=== PATIENT | female | born 1955 ===

== ENCOUNTER 2017-10-23 06:22 | Inpatient (IN) | payer MEDICAID ==
[2017-10-20 13:15] VITALS: BMI 24.0
[2017-10-23] MEDS ORDERED: Bupivacaine-Epi 0.5%-1:200,000 PF Inj IJ ONE (07:18)
[2017-10-23] MEDS ORDERED: Sodium Chloride 0.9% 20 ML IV ONE (07:28)
[2017-10-23] MEDS ORDERED: ceFAZolin 1 gm in NS 2 GM/200 ML BAG IVPB ONE (07:28)
[2017-10-23] MEDS ORDERED: Bacitracin 50,000 UNIT in Sodium Chloride 0.9% Irrig 1,000 ML IR SCH (08:00)
[2017-10-23] MEDS ORDERED: Propofol 10 mg/ml Inj (20 ML) ONE (08:16)
[2017-10-23] MEDS ORDERED: Midazolam 2 MG/2 ML VIAL ONE (08:16)
[2017-10-23] MEDS ORDERED: Lidocaine Hydrochloride 5 ML INJ ONE (08:19)
[2017-10-23] MEDS ORDERED: Rocuronium 10 mg/ml (5 ml) ONE (08:20)
[2017-10-23] MEDS ORDERED: Morphine 4 MG/ML VIAL IVP PRN (11:30)
[2017-10-23] MEDS ORDERED: Sodium Chloride 0.9% 1,000 ML IV SCH (11:30)
[2017-10-23] MEDS ORDERED: Oxycodone/Acetaminophen 5/325 mg Tab PO PRN (11:30)
--- NOTE | 2017-10-23 11:30 | PCM.OP ---
Operative Report - Operative Report Date of Surgery/Procedure: 10/23/17 Time of Surgery/Procedure: 11:27 Surgeon: Tan Saeed MD Air Compressor Engineer: Binta NUNEZ Anesthesia/Sedation: Gen with Et Tube Pre-Operative Diagnosis: Vaginal vault prolpase Stage 4. Urinary incontinence. Chronic pelvic pain. Cystocele Stage 4. Rectocele stage 4 Post-Operative Diagnosis: Vaginal vault prolpase Stage 4. Urinary incontinence. Chronic pelvic pain. Cystocele Stage 4. Rectocele stage 4. severe adhesive disease Indication for Surgery: worsening prolpase symptoms, debilitating pressure and pain in pelvis. Operative Findings: advanced vaginal vault prolapse, includilng stage 4 cystocele and rectocele. Procedure/Operation Description: Robotic Sacrocolpopexy. insertion of mesh. Robotic BSO. Enterolysis IBIS. Diagnostic cystosocpy. DESCRIPTION OF OPERATION. This is a 62 years old female with long-standing and worsening symptoms of bladder and vaginal vault prolapse, severe chronic pelvic pain and mixed urinary incontinence for several years. The patient is reporting vaginal bulge, her bladder protrudes out the vagina, urinary urgency and frequency daily, leakage of urine upon any exertion, coughing sneezing. For the past several years, these symptoms of involuntary leakage of urine and vaginal pressure have been worsening; she describes these symptoms as debilitating and adversely affecting her quality of life. The patient completed a hysterectomy in the past which resulted in vaginal fold prolapse years later. At this time, the patient presents with severe vaginal vault prolapse stage IV cystocele, vaginal vault apical prolapse extending all the way past the introitus. A comprehensive urinary incontinence work up was completed which included a TVUS , multichannel complex urodynamic study , urinalysis and cultures. The preoperative workup supports a diagnosis of mixed urinary incontinence and symptomatic large cystocele stage 4 and severe apical vaginal vault prolapse. The patient failed conservative management which included Kegels exercises as well as lifestyle changes and other pelvic floor rehabilitation exercises. A prolong and detailed discussion about conservative versus surgical management of urinary incontinence and bladder prolapse was completed. The patient elected to proceed with surgical management of bladder prolapse and urinary incontinence. A decision was made to proceed with robotic assisted sacrocolpopexy using polypropylene mesh material as well as bilateral salpingo- oophorectomy and lysis of adhesions if necessary.. After a detailed discussion regarding the pros and cons of sling procedure and the utilization of polypropylene mesh material, all risks were reviewed including but not limited to, risk of infection, mesh erosion, postoperative pain and dyspareunia. In addition, the FDA warning about mesh utilization for prolapse and incontinence surgery was reviewed in details, and a detailed and specific written informed consent was obtained. The patient elected to proceed with a Midurethral sling and prolapse repair today fully understanding and accepting the risks associated with utilizing polypropylene mesh material. Other alternatives were also offered to the patient, including a biological graft such as porcine graft as well as the patient owns fascia for sling material and prolapse repair, she elected to proceed with a polypropylene mesh sling and elevate despite all the associated risks. After proper consent was obtained from the patient, all risks , benefits, indications and alternatives of the procedure were once again reviewed with the patient. Patient was taken to the operating room, placed in the dorsolithotomy position; general anesthesia was obtained without difficulty. She was placed in the dorsal lithotomy position, her legs were placed in adjustable Ben stirrups, and careful attention was placed not to over flex or over rotates the lower extremities and the hip or knee joints. A 20 [place] three-way Grossman catheter was inserted at the outset of the procedure under sterile conditions. She was prepped and draped appropriately for robotic assisted sacrocolpopexy. The sponge stick was placed in the vagina to aid in manipulation. While tenting the abdominal wall, A Veress needle was inserted through the umbilicus at a 45 degree angle. With CO2 insufflation, there was a drop in intraperitoneal pressure confirming correct placement. Insufflation was carried out to approximately 3 liters an approximate pressure of 15mm. Then, utilizing the FirstRainep trocar system, the Veress was removed and reinserted with a Veress sheath, following which the Veress needle was removed again and a 10 mm trocar was inserted through the sheath. A robotic camera was inserted through this trocar and an initial survey of the patients abdomen revealed the following; extensive intra-abdominal and intrapelvic adhesions noted throughout the pelvic cavity, possibly from prior surgeries. Multiple loops of bowel were adherent to the pelvic sidewall as well as to the posterior cul-de-sac. The patient had her uterus surgically removed. Under direct visualization, a meticulous placement of robotic trochars was accomplished. All robotic trochars were inserted through an 8 mm incision in the following locations. The first robotic port was placed approximately 5 cm superior to the right superior iliac crest, the first robotic port was placed approximately 5 cm superior to the left superior iliac crest, the third robotic port was placed in the right upper quadrant, approximately 7 cm right lateral of the camera port in the midline, and an chemistry research assistant port was placed approximately 7 cm left lateral of the camera port approximately in the left upper quadrant. The chemistry research assistant port was approximately 1 cm in diameter, and we once again used to VersaStep trocar system in a similar fashion to the camera trocar. The patient was placed in moderate Trendelenburg position. Lateral side parallel da Telly robotic docking was accomplished without difficulty. The following instruments were utilized for this procedure: Monopolar david, PK, Prograsp. Prior to the start of the procedure, meticulous and careful lysis of adhesions as well as lysis of bowel adhesions was accomplished utilizing sharp and blunt dissections. Multiple loops of bowels were lysed off the pelvic sidewall in close proximity to the ureters on both right and left side. As well as extensive lysis of bowel adhesions from the posterior cul-de-sac to enable the completion of the sacrocolpopexy. Due to the close proximity of these tight adhesions to both ureters, exploration of ureters was necessary to ascertain safety of both ureters along the course from the pelvic brim to the bladder. The pelvic sidewall was entered in close proximity to do so psoas muscles, and the ureters were identified and traced all the way down to the bladder. Following the exploration of both ureters, the sacrocolpopexy procedure was to begin. Next was D bilateral salpingo-oophorectomy, following the extensive lysis of adhesions both ovaries and tubes were isolated vascular pedicles were cauterized and sealed and both ovaries and tubes were excised and transected labeled and sent to pathology. Attention was then turned to the presacral space. The peritoneum overlying it was tented upward and incised sagittally all the way down to the posterior vaginal wall along the pericolic gutter keeping the right ureter in view at all times. The posterior vaginal wall was dissected free from the peritoneum using monopolar Endoshears. Two obturators had been placed, one in the vagina, one in the rectum, to assist with this dissection. The dissection was carried out to 5 cm from the vaginal apex/vaginal cuff. A similar dissection was carried out anteriorly with the same technique. Excellent hemostasis was noted. A small incision was made over the longitudinal ligament on the sacrum, blunt and sharp dissection was utilized to isolate the longitudinal ligament and achieve hemostasis. This incision was continuous with the longitudinal incision along the pericolic gutter extending all the way to the posterior aspect of the vaginal cuff. There Y polypropylene mesh specifically designed for sacrocolpopexy was placed in the peritoneal cavity. The short end of the Y mash flap was anchored with 6 interrupted CV-2 [place]-Go sutures to the posterior vaginal wall. The anterior short end of the Y mesh was anchored with 6 interrupted CV 2 [place]-Go sutures to the anterior vaginal wall. Tension was performed to lift the vagina into the pelvic cavity to approximate the full length of the vagina in a tension-free fashion, while applying gentle upward tension the length of the long arm of the Y mesh was determined, trimmed off, and sutured anchored to the longitudinal ligament on the sacrum. Excellent hemostasis was noted throughout the procedure. The peritoneum over the Y mesh was closed entirely utilizing a 2-0 Monocryl suture in continuous fashion. The peritoneum was then closed with running 2-0 Vicryl with Lapra-Tys. The pelvis was irrigated copiously and freed of all clots and debris. Excellent hemostasis was noted. While removing under direct visualization, the fascia, the 12 mm trocar, was closed with a 0 Vicryl suture and then all ports were removed with excellent hemostasis. The umbilical fascia was closed with a [id number] 0 Vicryl suture. The skin was closed with 4-0 subcuticular Vicryl. At this time, the Grossman catheter was removed and a diagnostic cystoscopy was performed. The bladder was distended with about 300 cc of fluid. Both ureteral orifices were noted to be fluxing urine normally. The trigone was normal. There were no noted abnormalities with any evidence of any compromise of the lower urinary tract with mesh material, sutures or instruments. The patient emerged from general anesthesia without any difficulty. The patient was taken to the recovery room in stable condition. Prior to incision patient received prophylactic antibiotics, prior to closure sponge lap and needle counts are correct x2. The 2-inch iodoform gauze vaginal packing was then placed to prevent hematoma formation underneath the vaginal mucosa. Needle, sponge, and instrument counts were correct. Estimated Blood Loss: 10 Blood Replaced: none Sponge/Instrument Count: count corrent times 2 Drains: none Complications: none Specimen: bilateral tubes and ovaries Discharge & Condition: discharge home as per criteria
[2017-10-23] MEDS: HYDROmorphone 0.5 mg/0.5 ml ISec IVP PRN ×2 (11:55→12:27)
[2017-10-23] MEDS ORDERED: ceFAZolin 2 GM in Sodium Chloride 0.9% 100 ML IVPB SCH (13:00)
[2017-10-23] MEDS ORDERED: Sodium Chloride 0.9% 1,000 ML IV ONE (13:35)
[2017-10-23] MEDS: ceFAZolin 2 GM in Sodium Chloride 0.9% 100 ML IVPB SCH (17:28)
[2017-10-24] MEDS: ceFAZolin 2 GM in Sodium Chloride 0.9% 100 ML IVPB SCH ×2 (07:45)
[2017-10-24 07:57] LABS: HEMOGLOBIN 10.9 g/dL (11.0-16.0); MEAN CORPUSCULAR HEMOGLOBIN 30.8 pg (27.0-31.0); MEAN CORPUSCULAR HGB CONC 33.9 g/dL (33.0-37.0); MEAN PLATELET VOLUME 9.5 fL (7.2-11.7); RBC 3.54 Mil/uL (3.80-5.20)
[2017-10-24 08:05] LABS: WHITE BLOOD COUNT 10.8 K/uL (4.8-10.8)
[2017-10-24 08:13] VITALS: BP 106/65; PULSE 89; RESP 18; TEMP 98.8; O2SAT 98
[2017-10-24 08:13] LABS: BLOOD UREA NITROGEN 11 mg/dL (7-17); CALCIUM 8.7 mg/dl (8.6-10.4); GFR AFRICAN-AMERICAN > 60; GFR NON-AFRICAN AMERICAN > 60
--- NOTE | 2017-10-24 10:17 | CP.PCM.PN ---
Subjective - Date & Time of Evaluation Date of Evaluation: 10/24/17 Time of Evaluation: 10:14 - Subjective Subjective: Patient states she feels bloated, passing gas. TOlerating food. Yet to urinate. Complaining of some right sided neck pain, ice and pain medication helping. Objective - Vital Signs/Intake and Output Vital Signs (last 24 hours): Temp Pulse Resp BP Pulse Ox 98.8 F 89 18 106/65 98 10/24/17 08:00 10/24/17 08:00 10/24/17 08:00 10/24/17 08:00 10/24/17 08:00 Intake and Output: 10/24/17 10/24/17 06:59 18:59 Output Total 2500 Balance -2500 - Medications Medications: Current Medications Acetaminophen (Tylenol 325mg Tab) 650 mg PO Q6 PRN PRN Reason: Pain, Mild (1-3) Last Admin: 10/23/17 17:49 Dose: 650 mg Sodium Chloride (Sodium Chloride 0.9%) 1,000 mls @ 100 mls/hr IV .Q10H S[place] Morphine Sulfate (Morphine) 4 mg IVP Q4H PRN PRN Reason: Pain, severe (8-10) Ondansetron HCl (Zofran Inj) 4 mg IVP ONCE PRN PRN Reason: Nausea/Vomiting Oxycodone/Acetaminophen (Percocet 5/325 Mg Tab) 1 tab PO Q4 PRN PRN Reason: Pain, moderate (4-7) Stop: 10/26/17 11:31 Last Admin: 10/24/17 07:59 Dose: 1 tab - Labs Labs: 10/24/17 07:50 10/24/17 07:50 - GI/Abdominal Exam Additional comments: soft, mild distension, incisions intact Assessment and Plan (1) Vaginal vault prolapse Assessment & Plan: POD#1 s/p robotic SCP with mesh -d/c home after voiding ice/stretch/pain medication if neck pain does not resolve over weekend, instructed to call Dr. Saeed f/u in 2 weeks call for appt colace 100mg PO BID while taking pain medication rx percocet per Dr. Saeed d/w DR. Saeed, aware of above Status: Acute (2) Urinary incontinence Status: Acute (3) Chronic pelvic pain in female Status: Acute (4) Cystocele Status: Acute (5) Rectocele Status: Acute
== END 2017-10-24 14:45 | disposition home or self-care (01) | DRG 356 ==
LOC: C.SDS 06:22 → C.4M 11:30
PROVIDERS: ADMIT Obstetrics & Gynecology; ATTEND Obstetrics & Gynecology
PROC: 0TSD4ZZ Reposition Urethra, Percutaneous Endoscopic Approach (ICD-10-PCS; 2017-10-23)
PROC: 0UT24ZZ Resection of Bilateral Ovaries, Percutaneous Endoscopic Approach (ICD-10-PCS; 2017-10-23)
PROC: 0DNE4ZZ Release Large Intestine, Percutaneous Endoscopic Approach (ICD-10-PCS; 2017-10-23)
PROC: 0DNW4ZZ Release Peritoneum, Percutaneous Endoscopic Approach (ICD-10-PCS; 2017-10-23)
PROC: 8E0W4CZ Robotic Assisted Procedure of Trunk Region, Percutaneous Endoscopic Approach (ICD-10-PCS; 2017-10-23)
PROC: 0UT74ZZ Resection of Bilateral Fallopian Tubes, Percutaneous Endoscopic Approach (ICD-10-PCS; 2017-10-23)
PROC: 0TJB8ZZ Inspection of Bladder, Via Natural or Artificial Opening Endoscopic (ICD-10-PCS; 2017-10-23)
PROC: 0USG4ZZ Reposition Vagina, Percutaneous Endoscopic Approach (ICD-10-PCS; principal; 2017-10-23 07:45)
DX: N99.3 Prolapse of vaginal vault after hysterectomy (principal); K66.0 Peritoneal adhesions (postprocedural) (postinfection)

== ENCOUNTER 2018-01-08 06:11 | Day surgery (SDC) | payer MEDICAID ==
[2018-01-02 09:28] VITALS: BMI 24.4
[2018-01-08] MEDS ORDERED: Bacitracin 50,000 UNIT in Sodium Chloride 0.9% Irrig 1,000 ML IR SCH (07:45)
[2018-01-08] MEDS ORDERED: Sodium Chloride 0.9% 40 ML IV ONE (07:51)
[2018-01-08] MEDS ORDERED: Bupivacaine-Epi 0.5%-1:200,000 PF Inj ONE (07:51)
[2018-01-08] MEDS ORDERED: ceFAZolin IV 2 gm in Dextrose 2 GM/50 ML BAG IVPB ONE (07:52)
[2018-01-08] MEDS ORDERED: Clindamycin 2% Vaginal Cream(40 gm) ONE (07:57)
[2018-01-08] MEDS ORDERED: Propofol 10 mg/ml Inj (20 ML) ONE (08:00)
[2018-01-08] MEDS ORDERED: Midazolam 2 MG/2 ML VIAL ONE (08:00)
[2018-01-08] MEDS ORDERED: Rocuronium 10 mg/ml (5 ml) ONE (08:40)
[2018-01-08] MEDS ORDERED: Neostigmine Methylsulfate 3mg/3ml Syringe IV ONE (09:00)
--- NOTE | 2018-01-08 09:08 | PCM.OP ---
Operative Report - Operative Report Date of Surgery/Procedure: 01/08/18 Time of Surgery/Procedure: 09:05 Surgeon: Sarah Del Cid MD Customer Assistance Associate: Liana FU Anesthesia/Sedation: Gen with Et tube Pre-Operative Diagnosis: Urinary incontinence mixed. Cystocele. Rectocele. Vaginal vault prolpase following a hysterectomy Post-Operative Diagnosis: Urinary incontinence mixed. Cystocele. Rectocele. Vaginal vault prolpase following a hysterectomy Indication for Surgery: Worsening stress and urgency incontinence. Worsening pelvic pressure and pain associated cystocele Operative Findings: Stage III cystocele. hypermobile urethra. normal bladder anatomy as per cystoscopy Procedure/Operation Description: Midurethral sling (solyx [employer]). Insertion of mesh. Anterior colporhaphy (primary). diagnostic cystoscopy. Detailed operative report. This is a 62 years old female with long- standing and worsening symptoms of urinary incontinence and vaginal vault prolapse following hysterectomy. The patient is reporting a vaginal bulge and pressure worsening over time. The patient reported these symptoms to be debilitating and adversely affecting her quality of life. The patient is reporting leakage of urine upon any exertion, coughing sneezing as well as urgency incontinence. For several years these symptoms of severe leakage of urine on exertion have worsened. In addition, the patient is reporting a vaginal bulge in the back of the vagina which is growing over time. She is reporting vaginal pressure and difficulty with intercourse and bowel movements. A complete work up in the office which included an ultrasound and urodynamic study revealed a picture of mixed urinary incontinence with a strong stress urinary incontinence component. The patient had a long period of failed conservative management which included weight loss, Kegel exercises, and pelvic floor rehabilitation exercises. Following the complete workup, a long discussion of surgical vs other conservative was completed. A decision was made to proceed with an anterior colporrhaphy as well as mid-urethral sling procedure using synthetic mesh material. After a detailed discussion about the pros and cons of using polypropylene midurethral sling, all benefits and risks were reviewed including but not limited to the risk of infection, mesh erosion / extrusion, chronic pain and dyspareunia. In addition, the FDA warning about mesh utilization for prolapse and incontinence surgery was reviewed in details, and specific written consent was obtained. The patient elected to proceed with a midurethral sling today fully understanding the risk associated with utilizing mesh material. Other alternatives were also offered to the patient, including a biological graft such as porcine sling as well as the patient owns fascia as sling material, she elected to proceed with a mesh sling despite associated risks. Lastly, the patient elected to undergo a primary AP vaginal repair without mesh to correct a cystocele and rectocele and relaxed vaginal orifice. After proper consent was obtained from the patient, patient was taken to the operating room where general anesthesia was obtained without difficulty. She was placed in the dorsal lithotomy position, her legs were placed in adjustable Ben stirrups, and careful attention was placed not to over-flex or over-rotate the lower extremities. Grossman catheter was inserted under sterile conditions. She was prepped and draped appropriately for a vaginal repair and mid-urethral sling procedure. Examination revealed a widened introitus with a third degree cystourethrocele and prolapse of the vaginal wall following hysterectomy. After appropriate prep, the patient was draped in the usual manner for major vaginal surgery. A weighted speculum was placed posteriorly and the vagina was retracted anteriorly with a Andrade retractor. At the 10 and 2 o 'clock positions, at the cervicovaginal mucosal junction, vaginal mucosa was grasped with an Allis clamp and intervening tissue excised. The vagina was then opened in the midline to within a centimeter of distal urethral meatus. The bladder was then sharply dissected free from the overlying vaginal mucosa. Pubovesical-cervical fascia was identified and an initial suture at the urethrovesical angle was placed using 0 Vicryl in a transverse position through that fascial plane. The remainder of the cystocele was reduced with several interrupted 0 Vicryl. Redundant vaginal tissue was excised and the vagina closed in midline with simple and ucpalm-[id number] 0 Vicryl. The anterior vaginal wall over the midurethral area was grasped with a pair of Allis clamps and tenting the vaginal wall from the underlying urethra. Local anesthetic solution of 0.25% Marcaine with epinephrine diluted 1:1 was used to infiltrate the periurethral space. A total of 20 cc was utilized. Using a scalpel, a midurethral vertical incision about 1 cm was made through the vaginal epithelium and periurethral fascia. Careful lateral sharp dissection using Metzenbaum scissors towards the inferior pubic ramus to eventually allow the sling graft to lie flat against the urethra. Next, the sling mesh was loaded onto the needle tip. The needle tip was inserted through one side of the incision towards the medial edge of the obturator foramen approximately 45 degrees of the horizontal plane. Using an arching helical motion, the needle tip was advanced through pushing the obturator internus muscle. The needle was released from the graft and loaded on the other side of the sling ready for deployment to the contralateral side. Ensuring the sling is flat on the urethra and not twisted, the needle was advanced in an arching motion towards the obturator internus muscle on the opposite site. Attention was readdressed to allow a flat placement with tension- free sling on the midurethra. Following saline irrigation and good hemostasis was noted, the vaginal mucosa was closed with 2-0 Vicryl in a locking fashion. The patient tolerated the procedure well. At this time, the Grossman catheter was removed and a diagnostic cystoscopy was performed. The bladder was distended with about 300 cc of fluid. Both ureteral orifices were noted to be fluxing urine normally. The trigone was normal. There were no noted abnormalities with any evidence of any compromise of the lower urinary tract with mesh material, sutures or instruments. The patient emerged from general anesthesia without any difficulty. The patient was taken to the recovery room in stable condition. Prior to incision patient received prophylactic antibiotics, prior to closure sponge lap and needle counts are correct x2. Estimated Blood Loss: 10 Blood Replaced: none Sponge/Instrument Count: count was correct x2 Drains: none Complications: none Specimen: vaginal mucosa Discharge & Condition: today with criteria for discharge home
[2018-01-08] MEDS ORDERED: HYDROmorphone 0.5 mg/0.5 ml ISec IVP PRN (09:10)
[2018-01-08] MEDS ORDERED: Oxycodone/Acetaminophen 5/325 mg Tab PO PRN (09:10)
[2018-01-08] MEDS ORDERED: Sodium Chloride 0.9% 1,000 ML IV SCH (09:15)
[2018-01-08 09:38] VITALS: O2SAT 100
[2018-01-08] MEDS ORDERED: Lactated Ringer's 500 ML IV ONE (10:35)
[2018-01-08 13:44] VITALS: BP 130/78; PULSE 85; RESP 18; TEMP 97.4
== END 2018-01-08 14:00 | disposition home or self-care (01) ==
LOC: C.SDS 06:11
PROVIDERS: ATTEND Obstetrics & Gynecology
DX: N99.3 Prolapse of vaginal vault after hysterectomy (principal); N81.6 Rectocele; N39.46 Mixed incontinence; R73.01 Impaired fasting glucose
CPT/HCPCS: 57260; 57288; 82948; 88305; C1771; C2615; J0690; J1885; J2001; J2250; J2405; J2704; J2710; J3010; J7120